=== PATIENT | female | born 1985 | race Caucasian/White ===

== ENCOUNTER 2022-02-20 03:06 | Emergency (ER) | payer BC ==
[2022-02-20 04:34] LABS: HEMOGLOBIN 12.4 gm/dl (12.3-15.3); RED BLOOD COUNT 5.11 M/UL (4.00-5.10); WHITE BLOOD COUNT 11.9 K/UL (4.5-11.0)
[2022-02-20] MEDS ORDERED: ACYCLOVIR400 MG PO (05:43)
[2022-02-20] MEDS ORDERED: ENDOCET 5-3251 EACH PO (05:45)
== END 2022-02-20 06:05 | disposition home or self-care (01) ==
LOC: ER1 03:06
PROVIDERS: Emergency Medicine
DX: N39.0 Urinary tract infection, site not specified (principal); N83.202 Unspecified ovarian cyst, left side; B00.9 Herpesviral infection, unspecified
CPT/HCPCS: 80053; 83690; 85025; 93005; 99284